=== PATIENT | male | born 1965 | race Caucasian/White ===

== ENCOUNTER 2018-10-13 17:16 | Emergency (ER) | payer BC ==
--- NOTE | 2018-10-13 17:41 | EDM.PDOC ---
ED HPI GENERAL MEDICAL PROBLEM - General Chief Complaint: Headache Stated Complaint: Fell at home and hit head on asphalt Time Seen by Provider: 10/13/18 17:37 Source of Information: Reports: Patient, Family, RN - History of Present Illness INITIAL COMMENTS - FREE TEXT/NARRATIVE: 52 yr male presents after having a fall at home. States he went outside to get the mail, didn't see the ice and legs went out from under him and hit head and back. He notes headache and back pain. States he never did have any LOC with this and was able to get inside house by self and did call his at that time. States this happened about 1 hour before presenting to ER. Headache is improving, some eye sensitive to light, no blurred vision and no nausea. He hasn't taken anything for pain, but has had ice to back and is feeling much improved. He is alert and talkative and his is with him. States some pain to chest too. - Related Data Allergies Allergy/AdvReac Type Severity Reaction Status Date / Time No Known Allergies Allergy Verified 10/13/18 18:32 Home Meds: Home Meds Simvastatin 20 mg PO DAILY 10/13/18 [History] ED ROS GENERAL - Review of Systems Review Of Systems: See Below Constitutional: Reports: Weakness HEENT: Reports: Glasses, Sinus Problem, Other (sensitive to lights). Denies: Eye Pain, Nose Pain, Vision Change Respiratory: Reports: Cough Cardiovascular: Reports: No Symptoms Endocrine: Reports: No Symptoms GI/Abdominal: Reports: No Symptoms Musculoskeletal: Reports: Other (some pain to breastbone) Skin: Reports: No Symptoms Neurological: Reports: Headache. Denies: Numbness, Paresthesia Psychiatric: Reports: No Symptoms - Physical Exam Exam: See Below Exam Limited By: No Limitations General Appearance: Alert, No Apparent Distress Ears: Normal External Exam, Hearing Grossly Normal Nose: Normal Inspection, Normal Mucosa Throat/Mouth: Normal Inspection, Normal Voice, No Airway Compromise Head Exam: Atraumatic, Normocephalic Neck: Normal Inspection, Supple, Non-Tender Respiratory/Chest: No Respiratory Distress, Lungs Clear, Normal Breath Sounds Cardiovascular: Regular Rate, Rhythm, No Edema Neuro Exam (Abbreviated): Alert, Oriented, Normal Cognition Back Exam: Normal Inspection. No: Paraspinal Tenderness, Vertebral Tenderness Extremities: Normal Range of Motion Psychiatric: Normal Affect, Normal Mood Skin Exam: Warm, Dry, Normal Color Course - Vital Signs Last Recorded V/S: Last Vital Signs Temp 97.8 F 10/13/18 18:46 Pulse 94 10/13/18 18:46 Resp 16 10/13/18 18:46 BP 152/98 H 10/13/18 18:46 Pulse Ox 100 10/13/18 18:46 - Orders/Labs/Meds Orders: Active Orders 24 hr Category Date Time Status Head wo Cont [CT] Stat Exams 10/13/18 17:40 Taken Meds: Medications Discontinued Medications Generic Name Dose Route Start Last Admin Trade Name Stacey PRN Reason Stop Dose Admin Acetaminophen Confirm 10/13/18 17:58 Tylenol Arthritis Pain Administered 10/13/18 17:59 Dose 650 mg .ROUTE .STK-MED ONE Departure - Departure Time of Disposition: 18:12 Disposition: Home, Self-Care 01 Condition: Good Clinical Impression: Head injury - Discharge Information Referrals: PCP,None [Primary Care Provider] - Forms: ED Department Discharge - My Orders Last 24 Hours: My Active Orders 10/13/18 17:40 Head wo Cont [CT] Stat - Assessment/Plan Last 24 Hours: My Active Orders 10/13/18 17:40 Head wo Cont [CT] Stat Plan: Will get a CT of head to rule out any hemorrhage or head injury from the fall. If CT is normal, will discharge to care of family and monitor for any increase in symptoms. Tylenol as needed for relief of pain and diet as tolerated. Recommend rest tonight, ice to back and head, and limit electronic use tonight until headache is resolved. CT results reviewed with pt and , no hemorrhage noted, no infarct. Sinusitis noted and pt reports increase in sinus congestion and cough persists despite Azithromycin recently. Will start Augmentin 875 mg PO bid X 10 days. May use Tyelnol for relief of pain and limit use of Aleve or Ibuprofen for 24 hour. RTC or ER if increase in symptoms or any change in LOC.
[2018-10-13] MEDS ORDERED: Amoxicillin/Clavulanate K 875-125 MG Tab ONE (17:55)
[2018-10-13] MEDS ORDERED: Acetaminophen 650 MG Tab.ER ONE ×2 (17:55→17:58)
--- NOTE | 2018-10-14 09:45 | CT ---
UNENHANCED BRAIN CT, 10/13/18 Multislice acquisition through the brain without IV contrast was performed. No masses or mass effect. No intracranial hemorrhage. No evidence of acute or subacute infarct. The patient is status post partial ethmoidectomy. There is mucosal thickening in the frontal, remaining ethmoid, and sphenoid sinuses consistent with chronic sinusitis. IMPRESSION: No acute intracranial abnormalities. Findings consistent with sinusitis. [id number] [facility]
== END 2018-10-13 18:15 | disposition home or self-care (01) ==
LOC: LB.ED 17:16
DX: S09.90XA Unspecified injury of head, initial encounter (principal); Z79.899 Other long term (current) drug therapy; W00.0XXA Fall on same level due to ice and snow, initial encounter; Y92.009 Unspecified place in unspecified non-institutional (private) residence as the place of occurrence of the external cause
CPT/HCPCS: 70450; 99284-25; A9270-GY

== ENCOUNTER 2018-10-19 11:20 | Emergency (ER) | payer BC ==
--- NOTE | 2018-10-19 11:52 | EDM.PDOC ---
ED HPI GENERAL MEDICAL PROBLEM - General Chief Complaint: General Stated Complaint: increased headache Time Seen by Provider: 10/19/18 11:30 Source of Information: Reports: Patient History Limitations: Reports: No Limitations - History of Present Illness INITIAL COMMENTS - FREE TEXT/NARRATIVE: Pt is a 52 taylor old male who had a fall 1 wk ago and hit the back of his head against the hard ground. There was no loss of consciousness, but he has had photophobia, difficulty concentrating, feels foggy at times, some nausea. But he claims over the past 2 days his headache has got worse. Hurts all over the head and behind his ears. pain is dull achy , rates 5/10. Has been using tyelnol and motrin as needed, headache improves but does not resolve. No blurry vision,no confusion, no weakness in the extremities,no tingling or numbness, no syncope.No seizures. Duration: Week(s): (1) Location: Reports: Head Quality: Reports: Ache Severity: Moderate Improves with: Reports: None Worsens with: Reports: None Associated Symptoms: Reports: Headaches, Nausea/Vomiting. Denies: Confusion, Chest Pain, Cough, Diaphoresis, Fever/Chills, Loss of Appetite, Rash, Seizure, Shortness of Breath, Syncope, Weakness Head Pain Score (Numeric/FACES): 7 - Related Data Allergies Allergy/AdvReac Type Severity Reaction Status Date / Time No Known Allergies Allergy Verified 10/19/18 11:38 Home Meds: Home Meds Simvastatin 20 mg PO DAILY 10/13/18 [History] Amoxicillin/Clavulanate K [Augmentin 875-125 MG] 1 tab PO BID 10/19/18 [History] ED ROS GENERAL - Review of Systems Review Of Systems: See Below Constitutional: Denies: Fever, Chills, Malaise, Weakness HEENT: Denies: Ear Pain, Nosebleed, Rhinitis, Throat Pain, Throat Swelling, Vertigo, Vision Change Respiratory: Denies: Shortness of Breath, Pleuritic Chest Pain, Cough, Sputum Cardiovascular: Denies: Chest Pain, Lightheadedness GI/Abdominal: Reports: Nausea. Denies: Abdominal Pain, Constipation, Distension , Vomiting Musculoskeletal: Denies: Joint Pain, Joint Swelling, Muscle Pain, Muscle Stiffness Skin: Denies: Bruising, Pruritis, Rash Neurological: Reports: Dizziness, Headache. Denies: Confusion, Numbness, Syncope, Tingling, Difficulty Walking, Weakness, Gait Disturbance Psychiatric: Denies: Agitation, Anxiety, Confusion, Cravings, Depression ED EXAM, GENERAL - Physical Exam Exam: See Below Exam Limited By: No Limitations General Appearance: Alert, WD/WN, No Apparent Distress Ears: Normal External Exam, Normal Canal, Hearing Grossly Normal, Normal TMs Ear Exam: Bilateral Ear: Auricle Normal, Canal Normal, TM normal Nose: Normal Inspection, Normal Mucosa, No Blood Throat/Mouth: Normal Inspection, Normal Lips, Normal Teeth, Normal Gums, Normal Oropharynx, Normal Voice, No Airway Compromise Head: Atraumatic, Normocephalic Neck: Normal Inspection, Supple, Non-Tender, Full Range of Motion Respiratory/Chest: No Respiratory Distress, Lungs Clear, Normal Breath Sounds, No Accessory Muscle Use, Chest Non-Tender Cardiovascular: Normal Peripheral Pulses, Regular Rate, Rhythm, No Edema, No Gallop, No JVD, No Murmur, No Rub GI/Abdominal: Normal Bowel Sounds, Soft, Non-Tender, No Organomegaly, No Distention, No Abnormal Bruit, No Mass Neurological: Alert, Oriented, CN II-XII Intact, Normal Cognition, Normal Gait, Normal Reflexes, No Motor/Sensory Deficits Psychiatric: Normal Affect, Normal Mood Skin Exam: Warm, Intact Course - Vital Signs Text/Narrative:: Pt is here 1 wk post injury, and he continue to have light sensitivity, nausea , foggy feeling, which are persistent since fall. But he has been having headache which has got worse over the past 2 days. His vitals are stable and his neuro exam is normal.Will repeat Ct head, to make sure he does not have any delayed intracranial bleed. Ct head done today rogel not show any acute changes. Pt reassured that he has concussion syndrome. He did receive toradol 30mg IM. Have stated him on toradol 10mg 3 times daily for headache. Also zofran 4mg TID prn for nausea. rest and hydration.avoid excessive stress.No work for next 1 wk. Also pt has been scheduled with OT for concussion followup. Last Recorded V/S: Last Vital Signs Temp 98.5 F 10/19/18 11:59 Pulse 92 10/19/18 11:59 Resp 20 10/19/18 11:59 BP 137/93 H 10/19/18 11:59 Pulse Ox 97 10/19/18 11:59 - Orders/Labs/Meds Meds: Medications Discontinued Medications Generic Name Dose Route Start Last Admin Trade Name Stacey PRN Reason Stop Dose Admin Ketorolac Tromethamine Confirm 10/19/18 12:49 10/19/18 20:33 Toradol Administered 10/19/18 12:50 Not Given Dose 30 mg .ROUTE .STK-MED ONE Ketorolac Tromethamine 30 mg 10/19/18 14:51 10/19/18 13:00 Toradol IM 10/19/18 14:52 30 mg ONETIME ONE Administration Departure - Departure Time of Disposition: 13:00 Disposition: Home, Self-Care 01 Condition: Fair Clinical Impression: Cerebral concussion - Discharge Information *PRESCRIPTION DRUG MONITORING PROGRAM REVIEWED*: Not Applicable *COPY OF PRESCRIPTION DRUG MONITORING REPORT IN PATIENT MAIK: Not Applicable Instructions: Ondansetron tablets, Ketorolac injection, Concussion, Adult, Ketorolac tablets Referrals: PCP,None [Primary Care Provider] - Forms: ED Department Discharge Care Plan Goals: Stay of work until cleared by occupational therapy, away from light and noise. Try to stay awake during day. Take Toradol 10 mg 3 x day for discomfort and zofran 4 mg 3 x day for nausea as needed.for nausea. Referral to occupational therapy velia and Nydia should call you for an appointment - Problem List & Annotations (1) Post concussion syndrome SNOMED Code(s): 54999032 Code(s): F07.81 - POSTCONCUSSIONAL SYNDROME Status: Acute - Problem List Review Problem List Initiated/Reviewed/Updated: Yes - Assessment/Plan Assessment:: post concussion syndrome Plan: Ct head done today rogel not show any acute changes. Pt reassured that he has concussion syndrome. He did receive toradol 30mg IM. Have stated him on toradol 10mg 3 times daily for headache. Also zofran 4mg TID prn for nausea. rest and hydration.avoid excessive stress.No work for next 1 wk. Also pt has been scheduled with OT for concussion followup.
[2018-10-19] MEDS ORDERED: Ketorolac 30 MG/ML SDV ONE (12:49)
[2018-10-19] MEDS ORDERED: Ketorolac 30 MG/ML SDV IM ONE (14:51)
--- NOTE | 2018-10-20 08:25 | CT ---
UNENHANCED BRAIN CT, 10/19/18 Multislice acquisition through the brain without IV contrast was performed. Comparison is made to a prior exam dated 10/13/18. No masses or mass effect. No intracranial hemorrhage. No evidence of acute or subacute infarct. There is fluid in the frontal and ethmoid sinuses. There is also mucosal thickening of the sphenoid sinuses. These findings are consistent with sinusitis. IMPRESSION: No acute intracranial abnormalities. Findings consistent with sinusitis. [id number] [facility]
== END 2018-10-19 13:00 | disposition home or self-care (01) ==
LOC: LB.ED 11:20
DX: S06.0X0A Concussion without loss of consciousness, initial encounter (principal); Z79.899 Other long term (current) drug therapy; W18.39XA Other fall on same level, initial encounter
CPT/HCPCS: 70450; 96372; 99284-25; J1885

== ENCOUNTER 2019-05-04 06:25 | Emergency (ER) | payer BC ==
[2019-05-04] MEDS ORDERED: Bacitracin Oint 1 GM U/D Packet TOP ONE (07:00)
--- NOTE | 2019-05-04 07:06 | EDM.PDOC ---
ED HPI GENERAL MEDICAL PROBLEM - General Chief Complaint: Skin Complaint Stated Complaint: FOOT CELLULITIS Time Seen by Provider: 05/04/19 06:45 Source of Information: Reports: Patient History Limitations: Reports: No Limitations - History of Present Illness INITIAL COMMENTS - FREE TEXT/NARRATIVE: According to patient, he noticed redness over the left leg this weekend( 2 days ago). He is not sure how this happened, has been hurting. No fever or chills. HE has been feeling nauseous, and shortness of breath on and off for some time. No lethargy. Onset Date: 05/02/19 Location: Reports: Lower Extremity, Left Quality: Reports: Ache Severity: Mild Improves with: Reports: None Worsens with: Reports: None Associated Symptoms: Denies: Confusion, Chest Pain, Cough, Diaphoresis, Fever/ Chills, Headaches, Nausea/Vomiting, Rash, Seizure, Shortness of Breath, Syncope , Weakness Left Foot Pain Score (Numeric/FACES): 2 - Related Data Allergies Allergy/AdvReac Type Severity Reaction Status Date / Time No Known Allergies Allergy Verified 05/04/19 06:55 Home Meds: Home Meds Simvastatin 20 mg PO DAILY 10/13/18 [History] Social & Family History - Tobacco Use Smoking Status *Q: Never Smoker Second Hand Smoke Exposure: No - Caffeine Use Caffeine Use: Reports: Coffee, Soda - Recreational Drug Use Recreational Drug Use: No ED ROS GENERAL - Review of Systems Review Of Systems: See Below Constitutional: Denies: Fever, Chills HEENT: Denies: Ear Pain, Rhinitis, Throat Pain Respiratory: Reports: Shortness of Breath. Denies: Wheezing, Pleuritic Chest Pain, Cough, Sputum Cardiovascular: Denies: Chest Pain, Orthopnea GI/Abdominal: Reports: Nausea. Denies: Abdominal Pain, Constipation, Diarrhea, Vomiting : Denies: Dysuria, Frequency Musculoskeletal: Denies: Joint Pain, Joint Swelling Skin: Reports: Erythema. Denies: Bruising, Pruritis, Rash, Wound ED EXAM, SKIN/RASH Exam: See Below Exam Limited By: No Limitations General Appearance: Alert, WD/WN, No Apparent Distress, Other (Pt is happy and smiling c/o shortness of breath. His resipratory rate is normal and SPO2 is 97%) Eye Exam: Bilateral Eye: EOMI, PERRL Ears: Normal External Exam, Normal Canal, Hearing Grossly Normal, Normal TMs Nose: Normal Inspection, Normal Mucosa, No Blood Throat/Mouth: Normal Inspection, Normal Lips, Normal Teeth, Normal Gums, Normal Oropharynx, Normal Voice, No Airway Compromise Head: Atraumatic, Normocephalic Neck: Normal Inspection, Supple, Non-Tender, Full Range of Motion Respiratory/Chest: No Respiratory Distress, Lungs Clear, Normal Breath Sounds, No Accessory Muscle Use, Chest Non-Tender Cardiovascular: Normal Peripheral Pulses, Regular Rate, Rhythm, No Edema, No Gallop, No JVD, No Murmur, No Rub GI/Abdominal: Normal Bowel Sounds, Soft, Non-Tender, No Organomegaly, No Distention, No Abnormal Bruit, No Mass Extremities: Normal Inspection, Normal Range of Motion, Non-Tender, No Pedal Edema, Normal Capillary Refill Neurological: Alert, Oriented Skin: Warm, Intact, Other (Left foot: There is bright red erythematous patch about the size of a dime over the dorsum of the forefoot. there is lgiht pinkish spreading erythema around it. tender to palpation.) Course - Vital Signs Text/Narrative:: Pt reassured that he has localized skin infection related to a bug or insect bite. He c/o he is short of breath and nauseous. His SPO2 is 97% on room air and his respiratory rte is between 14-16/min. His vitals are stable and his CBC is normal. I do not see any signs of systemic infection or sepsis. Pt reassured that he has bug bite over the left foot with localized skin infection. Advised to apply antibiotic ointment over the are and keep is clean. Motrin 800mg 3 time daily for pain. should resolve without complications. Followup in clinic if the redness spreads all over the left foot or leg, or develops fever with chills, nausea , vomiting, lethargy. Last Recorded V/S: Last Vital Signs Temp 97.3 F 05/04/19 06:59 Pulse 79 05/04/19 06:59 Resp 18 05/04/19 06:59 BP 148/96 H 05/04/19 06:59 Pulse Ox 97 05/04/19 06:59 - Orders/Labs/Meds Labs: Laboratory Tests 05/04/19 Range/Units 07:00 WBC 6.6 (4.0-11.0) K/uL RBC 5.45 (4.50-6.50) M/uL Hgb 15.5 (13.0-18.0) g/dL Hct 46.1 (40.0-54.0) % MCV 85 (76-96) fL MCH 28.4 (27.0-32.0) pg MCHC 33.6 (31.0-35.0) g/dL RDW 13.3 (11.0-16.0) % Plt Count 189 (150-400) K/uL MPV 9.8 (6.0-10.0) fL Neut % (Auto) 69.0 (45.0-70.0) % Lymph % (Auto) 15.9 L (20.0-40.0) % [place] % (Auto) 13.9 H (3.0-10.0) % Eos % (Auto) 0.6 L (1.0-5.0) % Baso % (Auto) 0.6 H (0.0-0.5) % Neut # (Auto) 4.53 (2.00-7.50) K/uL Lymph # (Auto) 1.04 L (1.50-4.00) K/uL [place] # (Auto) 0.91 H (0.20-0.80) K/uL Eos # (Auto) 0.04 (0.04-0.40) K/uL Baso # (Auto) 0.04 (0.02-0.10) K/uL Departure - Departure Time of Disposition: 07:30 Disposition: Home, Self-Care 01 Condition: Fair Clinical Impression: Localized infection of skin - Discharge Information *PRESCRIPTION DRUG MONITORING PROGRAM REVIEWED*: Not Applicable *COPY OF PRESCRIPTION DRUG MONITORING REPORT IN PATIENT MAIK: Not Applicable Referrals: PCP,None [Primary Care Provider] - Forms: ED Department Discharge Additional Instructions: Pt reassured that he has localized skin infection related to a bug or insect bite. He c/o he is short of breath and nauseous. His SPO2 is 97% on room air and his respiratory rte is between 14-16/min. His vitals are stable and his CBC is normal. I do not see any signs of systemic infection or sepsis. Pt reassured that he has bug bite over the left foot with localized skin infection. Advised to apply antibiotic ointment over the are and keep is clean. Motrin 800mg 3 time daily for pain. should resolve without complications. Followup in clinic if the redness spreads all over the left foot or leg, or develops fever with chills, nausea , vomiting, lethargy. - Problem List & Annotations (1) Localized infection of skin SNOMED Code(s): 497742219 Code(s): L08.9 - LOCAL INFECTION OF THE SKIN AND SUBCUTANEOUS TISSUE, UNSP Status: Acute Current Visit: Yes - Problem List Review Problem List Initiated/Reviewed/Updated: Yes - Assessment/Plan Assessment:: Localized skin infection left foot Plan: Pt reassured that he has localized skin infection related to a bug or insect bite. He c/o he is short of breath and nauseous. His SPO2 is 97% on room air and his respiratory rte is between 14-16/min. His vitals are stable and his CBC is normal. I do not see any signs of systemic infection or sepsis. Pt reassured that he has bug bite over the left foot with localized skin infection. Advised to apply antibiotic ointment over the are and keep is clean. Motrin 800mg 3 time daily for pain. should resolve without complications. Followup in clinic if the redness spreads all over the left foot or leg, or develops fever with chills, nausea , vomiting, lethargy.
== END 2019-05-04 07:45 | disposition home or self-care (01) ==
LOC: LB.ED 06:25
DX: L08.9 Local infection of the skin and subcutaneous tissue, unspecified (principal)
CPT/HCPCS: 36415; 85025; 99283

== ENCOUNTER 2019-05-05 21:54 | Emergency (ER) | payer BC ==
[2019-05-05] MEDS ORDERED: Amoxicillin/Clavulanate K 875-125 MG Tab ONE (22:00)
[2019-05-05] MEDS ORDERED: cefTRIAXone 1 GM Vial IM ONE (22:32)
[2019-05-05] MEDS ORDERED: Ketorolac 60 MG/2 ML SDV IM ONE (22:32)
--- NOTE | 2019-05-05 22:55 | ER ---
HISTORY OF PRESENT ILLNESS: A 53-year-old male here with complaints of a painful red rash on the top of the left foot. This all started on Saturday. They were in [place] staying at a hotel. It was a small red area. He had it checked yesterday here by another provider and was thought to be an insect bite of some sort. He was not treated with any antibiotics. The patient tells me that over the course of the last day or so, his symptoms have slowly gotten worse. The area of redness has gotten bigger since last night, it is still contained to the top part of his foot, but he states now he is running a little bit of a fever and does not feel well. There has not been any drainage or weeping from this area, and he has no idea if it was an insect bite or something else that caused his symptoms to develop. OBJECTIVE: GENERAL APPEARANCE: The patient is awake and alert. He states his pain is currently at 8 or 9/10. VITAL SIGNS: Reviewed. He is afebrile. Pulse is around 120. EXTREMITIES: Examining the patient's left foot reveals an erythematous macular rash on the dorsal aspect of the distal foot over the great toe and second toe. The area of involvement would be about 4 cm. The central area is slightly dusky. The skin is intact. There is no break in the skin that I can see. The area is warm to touch and tender to touch. There are pen banks that are almost at the perimeter. The patient tells me that this was done this morning. It has moved past the pen chintan about 0.5 cm in all directions. DIAGNOSIS: Cellulitis of the left forefoot. TREATMENT PLAN: Rocephin 1 g will be given IM. I also will start the patient on Augmentin 875 one tablet b.i.d. He is to take his first dose of that tonight as well. We will give him Toradol 60 mg IM to help with the pain. The patient is to take Tylenol or ibuprofen at home, alternating every 3 hours, taking Tylenol in approximately 3 hours unless he is sleeping well. He is to rest, keep his foot elevated, stay home tomorrow from work, and monitor symptoms closely. If he is not improving by tomorrow afternoon or if his condition should be getting worse by tomorrow, he is to come back in for a recheck, and he may need inpatient treatment at that time. The patient and his agree with the treatment plan and have no further questions. CRS/MODL /[id number]
== END 2019-05-05 22:17 | disposition home or self-care (01) ==
LOC: LB.ED 21:54
DX: L03.116 Cellulitis of left lower limb (principal)
CPT/HCPCS: 96372; 99283; A9270; J0696; J1885

== ENCOUNTER 2019-05-06 06:55 | Observation (INO) | payer BC ==
[2019-05-06] MEDS ORDERED: HYDROmorphone 2 MG/ML Syringe IVPUSH ONE (07:16)
[2019-05-06] MEDS ORDERED: Sodium Chloride 0.9% 1,000 ML IV ONE (07:18)
[2019-05-06] MEDS ORDERED: Ondansetron 4 MG/2 ML SDV IVPUSH ONE (07:21)
--- NOTE | 2019-05-06 07:54 | EDM.PDOC ---
ED HPI GENERAL MEDICAL PROBLEM - General Chief Complaint: General Stated Complaint: CELLULITIS Time Seen by Provider: 05/06/19 08:00 Source of Information: Reports: Patient, RN - History of Present Illness INITIAL COMMENTS - FREE TEXT/NARRATIVE: 53 yr male presents with pain and swelling to left dorsal foot. Kindly refer to other provider note for start of ER visit and history of this. Headache Pain Score (Numeric/FACES): 9 - Related Data Allergies Allergy/AdvReac Type Severity Reaction Status Date / Time No Known Allergies Allergy Verified 05/04/19 06:55 Home Meds: Home Meds Simvastatin 20 mg PO DAILY 10/13/18 [History] Social & Family History - Caffeine Use Caffeine Use: Reports: Coffee, Soda ED ROS GENERAL - Review of Systems Review Of Systems: See Below Constitutional: Reports: Fever, Chills, Decreased Appetite HEENT: Reports: No Symptoms Respiratory: Reports: No Symptoms Cardiovascular: Reports: No Symptoms GI/Abdominal: Reports: Decreased Appetite. Denies: Diarrhea : Denies: Dysuria Musculoskeletal: Reports: Other (generalized achiness) Skin: Reports: Erythema. Denies: Wound Neurological: Reports: Headache (since Saturday) Psychiatric: Reports: No Symptoms Hematologic/Lymphatic: Reports: No Symptoms ED EXAM, GENERAL - Physical Exam Exam: See Below Exam Limited By: No Limitations General Appearance: Alert, No Apparent Distress Ears: Hearing Grossly Normal Nose: Normal Inspection Throat/Mouth: Normal Voice, No Airway Compromise Head: Atraumatic, Normocephalic Neck: Normal Inspection, Supple, Non-Tender Respiratory/Chest: No Respiratory Distress Cardiovascular: Regular Rate, Rhythm Peripheral Pulses: 2+: Dorsalis Pedis (L), Dorsalis Pedis (R) GI/Abdominal: Soft, Non-Tender Back Exam: Other (limited ROM to left great toe) Neurological: Alert, Oriented, Normal Cognition Psychiatric: Normal Affect, Normal Mood Skin Exam: Warm, Dry, Normal Color, Other (erythema, mild swelling to dorsal side of left foot) Course - Vital Signs Last Recorded V/S: Last Vital Signs Temp 103.2 F H 05/06/19 08:08 Pulse 102 H 05/06/19 08:08 Resp 20 05/06/19 08:08 BP 156/94 H 05/06/19 08:08 Pulse Ox 97 05/06/19 08:08 - Orders/Labs/Meds Orders: Active Orders 24 hr Category Date Time Status Patient Status [ADT] Routine ADT 05/06/19 08:06 Active Acetaminophen [Tylenol] Med 05/06/19 08:05 Active 650 mg PO Q4H PRN Medication Orders Acetaminophen (Tylenol) 650 mg PO Q4H PRN PRN Reason: Temperature Last Admin: 05/06/19 08:06 Dose: 650 mg Amoxicillin/Clavulanate Potassium (Augmentin 875 Mg/125 Mg) 1 tab PO Q12HR SIDNEY Ceftriaxone Sodium 1 gm/ (Sodium Chloride) 50 mls @ 200 mls/hr IV ONETIME ONE Stop: 05/06/19 10:14 Sodium Chloride (Normal Saline) 1,000 mls @ 125 mls/hr IV ASDIRECTED SIDNEY Non-Formulary Medication (Simvastatin [Simvastatin]) 20 mg PO DAILY SIDNEY Ondansetron HCl (Zofran Odt) 4 mg PO Q8H PRN PRN Reason: Nausea/Vomiting Labs: Laboratory Tests 05/06/19 05/06/19 05/06/19 Range/Units 07:17 07:17 07:17 WBC 6.8 (4.0-11.0) K/uL RBC 5.53 (4.50-6.50) M/uL Hgb 15.8 (13.0-18.0) g/dL Hct 46.5 (40.0-54.0) % MCV 84 (76-96) fL MCH 28.6 (27.0-32.0) pg MCHC 34.0 (31.0-35.0) g/dL RDW 13.5 (11.0-16.0) % Plt Count 177 (150-400) K/uL MPV 9.7 (6.0-10.0) fL Neut % (Auto) 79.6 H (45.0-70.0) % Lymph % (Auto) 8.3 L (20.0-40.0) % Sully % (Auto) 11.7 H (3.0-10.0) % Eos % (Auto) 0.1 L (1.0-5.0) % Baso % (Auto) 0.3 (0.0-0.5) % Neut # (Auto) 5.44 (2.00-7.50) K/uL Lymph # (Auto) 0.57 L (1.50-4.00) K/uL Sully # (Auto) 0.80 (0.20-0.80) K/uL Eos # (Auto) 0.01 L (0.04-0.40) K/uL Baso # (Auto) 0.02 (0.02-0.10) K/uL Sodium 140 (136-145) mmol/L Potassium 4.1 (3.5-5.1) mmol/L Chloride 104 (98-107) mmol/L Carbon Dioxide 22.6 (21.0-32.0) mmol/L Anion Gap 17.5 H (5.0-15.0) mmol/L BUN 16 (8-26) mg/dL Creatinine 0.91 (0.70-1.30) mg/dL Est Cr Clr Drug Dosing 106.64 mL/min Estimated GFR (MDRD) > 60 (>60) MLS/MIN BUN/Creatinine Ratio 17.6 (6-25) Glucose 115 H (74-100) mg/dL Lactic Acid 1.34 (0.90-1.70) mmol/L Calcium 8.9 (8.5-10.1) mg/dL Total Bilirubin 0.4 (0.0-1.0) mg/dL AST 26 (15-37) U/L ALT 41 (12-78) U/L Alkaline Phosphatase 96 (46-116) U/L Total Protein 7.5 (6.4-8.2) g/dL Albumin 3.4 (3.4-5.0) g/dL Globulin 4.1 (2.2-4.2) g/dL Albumin/Globulin Ratio 0.8 (0.8-2.0) Meds: Medications Generic Name Dose Route Start Last Admin Trade Name Freq PRN Reason Stop Dose Admin Acetaminophen 650 mg 05/06/19 08:05 05/06/19 08:06 Tylenol PO 650 mg Q4H PRN Administration Temperature Amoxicillin/Clavulanate Potassium 1 tab 05/06/19 10:00 Augmentin 875 Mg/125 Mg PO Q12HR SIDNEY Ceftriaxone Sodium 1 gm/ 50 mls @ 200 mls/hr 05/06/19 10:00 Sodium Chloride IV 05/06/19 10:14 ONETIME ONE Sodium Chloride 1,000 mls @ 125 mls/hr 05/06/19 08:30 Normal Saline IV ASDIRECTED SIDNEY Non-Formulary Medication 20 mg 05/06/19 20:00 Simvastatin [Simvastatin] PO DAILY SIDNEY Ondansetron HCl 4 mg 05/06/19 08:09 Zofran Odt PO Q8H PRN Nausea/Vomiting Discontinued Medications Generic Name Dose Route Start Last Admin Trade Name Stacey PRN Reason Stop Dose Admin Acetaminophen Confirm 05/06/19 08:12 05/06/19 08:07 Tylenol Administered 05/06/19 08:13 Not Given Dose 650 mg .ROUTE .STK-MED ONE Hydromorphone HCl 1 mg 05/06/19 07:16 05/06/19 07:17 Dilaudid IVPUSH 05/06/19 07:17 1 mg ONETIME ONE Administration Sodium Chloride 1,000 mls @ 999 mls/hr 05/06/19 07:18 05/06/19 07:28 Normal Saline IV 05/06/19 08:18 999 mls/hr .BOLUS ONE Administration Ondansetron HCl 4 mg 05/06/19 07:21 05/06/19 07:22 Zofran IVPUSH 05/06/19 07:22 4 mg ONETIME ONE Administration - Re-Assessments/Exams Free Text/Narrative Re-Assessment/Exam: 05/06/19 08:20 No leukocytosis, generalized body aches, rating pain to foot 6/ 10 after dilaudid, headache, but states this persists on/off since concussion in October, some nausea, decrease in appetite. Last temp>103. Tylenol 650 mg PO given. Will admit to observation, lactic acid is 1.34. Departure - Departure Time of Disposition: 08:29 Disposition: Refer to Observation Condition: Good Clinical Impression: Cellulitis - Discharge Information *PRESCRIPTION DRUG MONITORING PROGRAM REVIEWED*: Not Applicable *COPY OF PRESCRIPTION DRUG MONITORING REPORT IN PATIENT MAIK: Not Applicable - My Orders Last 24 Hours: My Active Orders 05/06/19 08:05 Acetaminophen [Tylenol] 650 mg PO Q4H PRN 05/06/19 08:06 Patient Status [ADT] Routine - Assessment/Plan Last 24 Hours: My Active Orders 05/06/19 08:05 Acetaminophen [Tylenol] 650 mg PO Q4H PRN 05/06/19 08:06 Patient Status [ADT] Routine
[2019-05-06] MEDS: Acetaminophen 325 MG Tab PO PRN (08:06)
[2019-05-06] MEDS ORDERED: Ondansetron 4 MG Tab.DIS PO PRN (08:09)
[2019-05-06] MEDS ORDERED: Acetaminophen 325 MG Tab ONE (08:12)
[2019-05-06] MEDS: Sodium Chloride 0.9% 1,000 ML IV SCH ×2 (08:45→16:45)
[2019-05-06] MEDS ORDERED: Ibuprofen 400 MG Tab PO ONE (09:25)
[2019-05-06] MEDS ORDERED: cefTRIAXone 1 GM in Sodium Chloride 0.9% 50 ML IV ONE (10:00)
[2019-05-06] MEDS: Lactobacillus Acidophilus/Lactobacillus Sporogenes (Probiotic) Tab PO SCH (10:15)
[2019-05-06] MEDS: Amoxicillin/Clavulanate K 875-125 MG Tab PO SCH ×2 (10:29→19:46)
[2019-05-06] MEDS: Ibuprofen 400 MG Tab PO PRN (18:02)
[2019-05-06] MEDS ORDERED: Non-Formulary Medication 1 Each (Simvastatin [Simvastatin] 20 MG) PO SCH (20:00)
[2019-05-07] MEDS: Ibuprofen 400 MG Tab PO PRN (02:06)
[2019-05-07] MEDS: Acetaminophen 325 MG Tab PO PRN (05:40)
[2019-05-07] MEDS: Lactobacillus Acidophilus/Lactobacillus Sporogenes (Probiotic) Tab PO SCH (07:54)
[2019-05-07] MEDS: Amoxicillin/Clavulanate K 875-125 MG Tab PO SCH (07:54)
--- NOTE | 2019-05-07 09:00 | PCM.DCSUM1 ---
Discharge Summary - Hospital Course Diagnosis: Stroke: No - Discharge Data Discharge Date: 05/07/19 Discharge Disposition: Home, Self-Care 01 Condition: Good - Patient Instructions Diet: Regular Diet as Tolerated Activity: As Tolerated Driving: May Drive Today Showering/Bathing: May Shower Notify Provider of: Fever, Increased Pain, Swelling and Redness Other/Special Instructions: RTC next week for follow-up - Discharge Plan *PRESCRIPTION DRUG MONITORING PROGRAM REVIEWED*: Not Applicable *COPY OF PRESCRIPTION DRUG MONITORING REPORT IN PATIENT MAIK: Not Applicable Home Medications: Home Meds Simvastatin 20 mg PO DAILY 10/13/18 [History] Acetaminophen [Tylenol] 650 mg PO Q4H PRN tablet 05/07/19 [Rx] Acidophilus/Lactobac Spor [Acidolphilus X-Strength] 1 tab PO DAILY tablet 05/07 [Rx] Amoxicillin/Clavulanate K [Augmentin 875-125 MG] 1 tab PO Q12HR tablet [Rx] Forms: ED Department Discharge Referrals: PCP,None [Primary Care Provider] - - Discharge Summary/Plan Comment DC Time >30 min.: Yes (Counseled on medications, cellulitis, H/A, and depression.) Discharge Summary/Plan Comment: Continue with Augmentin bid, complete the prescription, continue with daily probiotic for duration of antibiotic and 1 week after completed, Continue with elevating foot several times daily, up as tolerated at home, continue with Tylenol or Ibuprofen for relief of headache and pain to foot. May return to work, Saturday. Follow-up in clinic next week. - General Info Date of Service: 05/07/19 Admission Dx/Problem (Free Text: cellulitis, headache, temperature, pain to foot Functional Status: Reports: Pain Controlled, Tolerating Diet - Review of Systems General: Reports: No Symptoms HEENT: Reports: Glasses Pulmonary: Reports: No Symptoms Cardiovascular: Reports: No Symptoms Gastrointestinal: Reports: No Symptoms Genitourinary: Reports: No Symptoms Musculoskeletal: Reports: Foot Pain (Foot pain improved) Skin: Reports: Other (redness to foot) Neurological: Reports: Headache. Denies: Trouble Speaking, Difficulty Walking Psychiatric: Reports: Other (concerns of depression) - Patient Data Vitals - Most Recent: Last Vital Signs Temp 97.1 F 05/07/19 04:00 Pulse 79 05/07/19 04:00 Resp 18 05/07/19 04:00 BP 149/94 H 05/07/19 04:00 Pulse Ox 98 05/07/19 04:00 Weight - Most Recent: 259 lb 12.8 oz Lab Results - Last 24 hrs: Laboratory Results - last 24 hr 05/07/19 Range/Units 07:05 WBC 4.8 D (4.0-11.0) K/uL RBC 5.12 (4.50-6.50) M/uL Hgb 14.6 (13.0-18.0) g/dL Hct 43.5 (40.0-54.0) % MCV 85 (76-96) fL MCH 28.5 (27.0-32.0) pg MCHC 33.6 (31.0-35.0) g/dL RDW 13.6 (11.0-16.0) % Plt Count 188 (150-400) K/uL MPV 9.7 (6.0-10.0) fL Neut % (Auto) 64.4 (45.0-70.0) % Lymph % (Auto) 16.9 L (20.0-40.0) % Cottle % (Auto) 17.1 H (3.0-10.0) % Eos % (Auto) 1.2 (1.0-5.0) % Baso % (Auto) 0.4 (0.0-0.5) % Neut # (Auto) 3.11 (2.00-7.50) K/uL Lymph # (Auto) 0.82 L (1.50-4.00) K/uL Cottle # (Auto) 0.83 H (0.20-0.80) K/uL Eos # (Auto) 0.06 (0.04-0.40) K/uL Baso # (Auto) 0.02 (0.02-0.10) K/uL Med Orders - Current: Current Medications Acetaminophen (Tylenol) 650 mg PO Q4H PRN PRN Reason: Temperature Last Admin: 05/07/19 05:40 Dose: 650 mg Amoxicillin/Clavulanate Potassium (Augmentin 875 Mg/125 Mg) 1 tab PO Q12HR SIDNEY Last Admin: 05/07/19 07:54 Dose: 1 tab Sodium Chloride (Normal Saline) 1,000 mls @ 125 mls/hr IV ASDIRECTED [facility] Last Admin: 05/06/19 16:45 Dose: 125 mls/hr Ceftriaxone Sodium 1 gm/ (Sodium Chloride) 50 mls @ 200 mls/hr IV Q24H SIDNEY Ibuprofen (Motrin) 400 mg PO Q6H PRN PRN Reason: Pain Last Admin: 05/07/19 02:06 Dose: 400 mg Lactobacillus Acidophilus (Acidolphilus Extra Strength) 1 tab PO DAILY [facility] [place] Last Admin: 05/07/19 07:54 Dose: 1 tab Non-Formulary Medication (Simvastatin [Simvastatin]) 20 mg PO BEDTIME [facility] [place] Last Admin: 05/06/19 19:46 Dose: 20 mg Ondansetron HCl (Zofran Odt) 4 mg PO Q8H PRN PRN Reason: Nausea/Vomiting Discontinued Medications Acetaminophen (Tylenol) Confirm Administered Dose 650 mg .ROUTE .STK-MED ONE Stop: 05/06/19 08:13 Last Admin: 05/06/19 08:07 Dose: Not Given Hydromorphone HCl (Dilaudid) 1 mg IVPUSH ONETIME ONE Stop: 05/06/19 07:17 Last Admin: 05/06/19 07:17 Dose: 1 mg Sodium Chloride (Normal Saline) 1,000 mls @ 999 mls/hr IV .BOLUS ONE Stop: 05/06/19 08:18 Last Admin: 05/06/19 07:28 Dose: 999 mls/hr Ceftriaxone Sodium 1 gm/ (Sodium Chloride) 50 mls @ 200 mls/hr IV ONETIME ONE Stop: 05/06/19 10:14 Last Admin: 05/06/19 10:14 Dose: 200 mls/hr Ibuprofen (Motrin) 400 mg PO ONETIME ONE Stop: 05/06/19 09:26 Last Admin: 05/06/19 10:15 Dose: 400 mg Ondansetron HCl (Zofran) 4 mg IVPUSH ONETIME ONE Stop: 05/06/19 07:22 Last Admin: 05/06/19 07:22 Dose: 4 mg - Exam General: Reports: Alert, Oriented, Cooperative, No Acute Distress HEENT: Reports: Mucous Membr. Moist/[place] Neck: Reports: Supple, Trachea Midline Lungs: Reports: Clear to Auscultation, Normal Respiratory Effort Cardiovascular: Reports: Regular Rate, Regular Rhythm Extremities: Other (Pain is improved to foot, good ROM, hyperpigmented area noted to top of left foot, swelling improved.) Skin: Reports: Warm, Dry Neurological: Reports: No New Focal Deficit Psy/Mental Status: Reports: Alert, Normal Affect, Normal Mood
[2019-05-07] MEDS ORDERED: cefTRIAXone 1 GM in Sodium Chloride 0.9% 50 ML IV SCH (10:00)
== END 2019-05-07 09:50 | disposition home or self-care (01) ==
LOC: LB.ED 06:55 → LB.MS 08:06 → UNDOADMOB 08:07
PROVIDERS: ADMIT Nurse Practitioner Family; ATTEND Nurse Practitioner Family
DX: L03.116 Cellulitis of left lower limb (principal); Z79.899 Other long term (current) drug therapy
CPT/HCPCS: 36415; 80053; 83605; 85025; 87040; 96361; 96365; 96375; 96376; 99284; A9270; G0378; J0696; J1170; J2405; J7030; J7050; 96374

== ENCOUNTER 2019-05-11 11:26 | Emergency (ER) | payer BC ==
[2019-05-11] MEDS ORDERED: Acetaminophen/oxyCODONE 325-5 MG Tab ONE (12:00)
[2019-05-11] MEDS ORDERED: Sodium Chloride 0.9% 10 ML Syringe FLUSH PRN (12:07)
[2019-05-11] MEDS ORDERED: HYDROmorphone 2 MG/ML SDV IVPUSH ONE (12:08)
[2019-05-11] MEDS ORDERED: methylPREDNISolone Sodium Succinate 125 MG/2 ML SDV IVPUSH ONE (12:08)
[2019-05-11] MEDS ORDERED: Ketorolac 30 MG/ML SDV IVPUSH ONE (12:08)
[2019-05-11] MEDS ORDERED: Sodium Chloride 0.9% 500 ML IV SCH (12:15)
[2019-05-11] MEDS ORDERED: Ketorolac 30 MG/ML SDV ONE (12:22)
[2019-05-11] MEDS ORDERED: methylPREDNISolone Sodium Succinate 125 MG/2 ML SDV ONE (12:22)
[2019-05-11] MEDS ORDERED: HYDROmorphone 2 MG/ML SDV ONE (13:04)
--- NOTE | 2019-05-11 13:34 | EDM.PDOC ---
ED HPI GENERAL MEDICAL PROBLEM - General Chief Complaint: General Stated Complaint: headache Time Seen by Provider: 05/11/19 12:00 Source of Information: Reports: Patient, Family History Limitations: Reports: No Limitations - History of Present Illness INITIAL COMMENTS - FREE TEXT/NARRATIVE: This is a 53yo M here for a severe headache. He states it is about a 5-8/10 but there are sharp pains that raise that pain to 10/10 and has been very frequent today. He was diagnosed with a concussive syndrome in October but recently hit his head last week and having the same symptoms of severe headache. Onset: Sudden Duration: Day(s):, Constant, Getting Worse Location: Reports: Head Quality: Reports: Ache, Stabbing Severity: Severe Improves with: Reports: None Worsens with: Reports: Other (triggers like TV, driving), Movement Headache Pain Score (Numeric/FACES): 10 - Related Data Allergies Allergy/AdvReac Type Severity Reaction Status Date / Time No Known Allergies Allergy Verified 05/11/19 11:55 Home Meds: Home Meds Simvastatin 20 mg PO DAILY 10/13/18 [History] Acetaminophen [Tylenol] 650 mg PO Q4H PRN tablet 05/07/19 [Rx] Acidophilus/Lactobac Spor [Acidolphilus X-Strength] 1 tab PO DAILY tablet 05/07 [Rx] Amoxicillin/Clavulanate K [Augmentin 875-125 MG] 1 tab PO Q12HR tablet [Rx] Past Medical History Respiratory History: Reports: Sleep Apnea Genitourinary History: Reports: Renal Calculus Neurological History: Reports: Concussion Other Neuro History: concussion-october 2018 - Past Surgical History HEENT Surgical History: Reports: Adenoidectomy GI Surgical History: Reports: Appendectomy Male Surgical History: Reports: Kidney Stone Extraction Musculoskeletal Surgical History: Reports: Other (See Below) Other Musculoskeletal Surgeries/Procedures:: knee surgery Social & Family History - Family History Family Medical History: Noncontributory - Tobacco Use Smoking Status *Q: Never Smoker Second Hand Smoke Exposure: No - Caffeine Use Caffeine Use: Reports: None Other Caffeine Use: every morning - Recreational Drug Use Recreational Drug Use: No ED ROS GENERAL - Review of Systems Review Of Systems: ROS reveals no pertinent complaints other than HPI. ED EXAM, GENERAL - Physical Exam Exam: See Below Exam Limited By: No Limitations General Appearance: Alert, WD/WN, Moderate Distress Eye Exam: Bilateral Eye: EOMI, PERRL Ears: Normal External Exam Nose: Normal Inspection Head: Atraumatic, Normocephalic Neck: Normal Inspection Respiratory/Chest: No Respiratory Distress Cardiovascular: Normal Peripheral Pulses Course - Vital Signs Last Recorded V/S: Last Vital Signs Temp 36.4 C 05/11/19 11:56 Pulse 101 H 05/11/19 11:56 Resp 24 H 05/11/19 11:56 BP 125/77 05/11/19 11:56 Pulse Ox 98 05/11/19 11:56 - Orders/Labs/Meds Orders: Active Orders 24 hr Category Date Time Status Peripheral IV Insertion Adult [OM.PC] Routine Oth 05/11/19 12:07 Ordered Meds: Medications Discontinued Medications Generic Name Dose Route Start Last Admin Trade Name Freq PRN Reason Stop Dose Admin Hydromorphone HCl 1 mg 05/11/19 12:08 05/11/19 13:00 Dilaudid IVPUSH 05/11/19 12:09 1 mg ONETIME ONE Administration Hydromorphone HCl Confirm 05/11/19 13:04 05/11/19 13:05 Dilaudid Administered 05/11/19 13:05 Not Given Dose 2 mg .ROUTE .STK-MED ONE Sodium Chloride 500 mls @ 999 mls/hr 05/11/19 12:15 05/11/19 12:10 Normal Saline IV 999 mls/hr ASDIRECTED SIDNEY Administration Ketorolac Tromethamine 30 mg 05/11/19 12:08 05/11/19 12:18 Toradol IVPUSH 05/11/19 12:09 30 mg ONETIME ONE Administration Ketorolac Tromethamine Confirm 05/11/19 12:22 05/11/19 12:42 Toradol Administered 05/11/19 12:23 Not Given Dose 30 mg .ROUTE .STK-MED ONE Methylprednisolone Sodium Succinate 125 mg 05/11/19 12:08 05/11/19 12:24 Solu-Medrol IVPUSH 05/11/19 12:09 125 mg ONETIME ONE Administration Methylprednisolone Sodium Succinate Confirm 05/11/19 12:22 05/11/19 12:42 Solu-Medrol Administered 05/11/19 12:23 Not Given Dose 125 mg .ROUTE .STK-MED ONE Oxycodone/Acetaminophen 10 tab 05/11/19 12:00 Percocet 325-5 Mg .ROUTE 05/11/19 12:01 .STK-MED ONE Sodium Chloride 10 ml 05/11/19 12:07 05/11/19 12:05 Saline Flush FLUSH 10 ml ASDIRECTED PRN Administration Keep Vein Open Departure - Departure Time of Disposition: 13:30 Disposition: Home, Self-Care 01 Condition: Fair Clinical Impression: Post concussive syndrome Migraine Qualifiers: Migraine type: unspecified Status migrainosus presence: without status migrainosus Intractability: intractable Qualified Code(s): G43.919 - Migraine, unspecified, intractable, without status migrainosus - Discharge Information Instructions: General Headache Without Cause, [id number] Referrals: PCP,None [Primary Care Provider] - Forms: ED Department Discharge Additional Instructions: Discharge home Oxycodone/APAP 5/325 1 tablet every 4-6 hours as needed for pain. Follow up with neurology. Call or return to the ER if you have any questions or concerns. - Problem List & Annotations (1) Cerebral concussion SNOMED Code(s): 137592448 Code(s): S06.0X9A - CONCUSSION W LOSS OF CONSCIOUSNESS OF UNSP DURATION, INIT Status: Acute (2) Head injury SNOMED Code(s): 18654274 Code(s): S09.90XA - UNSPECIFIED INJURY OF HEAD, INITIAL ENCOUNTER Status: Acute (3) Migraine SNOMED Code(s): 13188028 Code(s): G43.909 - MIGRAINE, UNSP, NOT INTRACTABLE, WITHOUT STATUS MIGRAINOSUS Status: Acute Qualifiers: Migraine type: unspecified Status migrainosus presence: without status migrainosus Intractability: intractable Qualified Code(s): G43.919 - Migraine, unspecified, intractable, without status migrainosus (4) Post concussion syndrome SNOMED Code(s): 40049258 Code(s): F07.81 - POSTCONCUSSIONAL SYNDROME Status: Acute - Problem List Review Problem List Initiated/Reviewed/Updated: Yes - My Orders Last 24 Hours: My Active Orders 05/11/19 12:07 Peripheral IV Insertion Adult [OM.PC] Routine - Assessment/Plan Last 24 Hours: My Active Orders 05/11/19 12:07 Peripheral IV Insertion Adult [OM.PC] Routine Plan: Counseled on supportive and conservative management. Discussed oxycodone use only as needed and f/u in clinic and ER as needed. Patient to f/u with Neurology - note written for work until Neurology can clear patient.
== END 2019-05-11 13:20 | disposition home or self-care (01) ==
LOC: LB.ED 11:26
DX: G43.919 Migraine, unspecified, intractable, without status migrainosus (principal); F07.81 Postconcussional syndrome; Z79.899 Other long term (current) drug therapy; Z87.442 Personal history of urinary calculi
CPT/HCPCS: 96361; 96374; 96375; 99283; A9270; J1170; J1885; J2930; J7030

== ENCOUNTER 2020-07-03 02:21 | Emergency (ER) | payer BC ==
[2020-07-03] MEDS ORDERED: Ketorolac 30 MG/ML SDV IVPUSH ONE (02:35)
[2020-07-03] MEDS ORDERED: Sodium Chloride 0.9% 1,000 ML IV ONE (02:45)
[2020-07-03] MEDS ORDERED: Tamsulosin 0.4 MG Cap.ER PO ONE (03:18)
[2020-07-03] MEDS ORDERED: Ondansetron 4 MG/2 ML SDV IVPUSH ONE (03:23)
[2020-07-03] MEDS ORDERED: Ondansetron 4 MG Tab.DIS ONE (04:00)
[2020-07-03] MEDS ORDERED: traMADol 50 MG Tab ONE (04:00)
[2020-07-03] MEDS ORDERED: Tamsulosin 0.4 MG Cap.ER ONE (04:00)
[2020-07-03] MEDS ORDERED: Ondansetron 4 MG/2 ML SDV ONE (04:02)
[2020-07-03] MEDS ORDERED: HYDROmorphone 2 MG/ML SDV IM ONE (04:25)
[2020-07-03] MEDS ORDERED: HYDROmorphone 2 MG/ML SDV ONE (04:34)
--- NOTE | 2020-07-03 09:35 | ER ---
REASON FOR EMERGENCY ROOM VISIT: Kidney stone. HISTORY: This is 54-year-old man with a past history of left left-sided ureterolithiasis, comes in with left sided flank pain. He states that about 4 days ago, he developed rather acute onset of left-sided flank pain that lasted approximately 2 to 3 hours. It originated in his mid back area and radiated down to his flank. This was associated with nausea and vomiting x1, but it passed spontaneously after 2 or 3 hours. He suspected it might be a kidney stone as he does have a history of ureterolithiasis dating back 6 or 8 years ago requiring lithotripsy and stenting for removal. Last evening at approximately 8:30, he developed severe pain that lasted approximately 1 hour in the same area and resolved. He went to sleep and then was awakened at 10:30 again with intermittent colicky pain in his left mid back and left flank area. It was associated with nausea and vomiting x1. He has not had any fever, chills, or grossly bloody urine. PAST MEDICAL HISTORY: 1. Ureterolithiasis (see above). 2. Right knee replacement. 3. Nasal polypectomy. 4. Knee arthroscopy x2. 5. Traumatic brain injury with subsequent postconcussion syndrome in October 2018. 6. Hypertension. 7. History of migraines. MEDICATIONS: Reviewed. Please see EMR. They include hydrochlorothiazide, simvastatin, omeprazole, and Toradol p.r.n. SOCIAL HISTORY: He is with children. He has not been working since his traumatic brain injury, which has caused him considerable disability. FAMILY HISTORY: His father of a myocardial infarction at age 70. His mother at age 88 from complications secondary to dementia. He has 2 children who are alive and well. He has 5 siblings, 2 of whom have type 2 diabetes. REVIEW OF SYSTEMS: Pertinent positives and negatives as listed in the HPI. He had received 1 L of normal saline when he came to the emergency room and 30 mg of Toradol and his pain promptly and completely resolved. PHYSICAL EXAMINATION: GENERAL: He is alert, in no acute distress at this time. He is afebrile. HEENT: No scleral icterus is noted. NECK: Supple. No adenopathy. CHEST: Clear to auscultation. CARDIAC: Regular rate without murmur. ABDOMEN: Actually soft and nontender. He has no left flank tenderness. There is no CVA tenderness. EXTREMITIES: Normal pulses. No edema. LABORATORY DATA: His CBC shows that he has an elevated white count of 14,900. His hemoglobin is 16.8. His CMP shows that he does have hypokalemia of 3.1. His creatinine is 1.4 with an estimated GFR of 52. His blood glucose is 174, this is nonfasting. Urinalysis was obtained which demonstrates some proteinuria and 50 to 75 rbc's per high-power field with 0 to 5 wbc's and no bacteria. FURTHER EMERGENCY ROOM COURSE: Following his IV of normal saline and Toradol, we went ahead and obtained a CT scan which demonstrates a 6 mm stone located in his upper left ureter with minimal hydronephrosis proximally. He does have a small stone in the left kidney as well. Just prior to discharge, he did start to have flare-up of his pain again and we went ahead and gave him 2 mg of Dilaudid IM. IMPRESSION: Left ureterolithiasis, 6 mm in size. PLAN: I told him that although this is borderline in terms of likelihood of this being passing. He still has roughly a fifty-fifty chance of this passing spontaneously, but it may take several days or even weeks. He was given Flomax 0.4 mg p.o. x1 and a prescription for Flomax for the next 10 days, 1 p.o. daily. The importance of hydration was emphasized to him. He is also informed that he has some hypokalemia and I talked about dietary foods that can help correct this, otherwise he will have to go on oral potassium replacement. He understands and agrees with this. All questions were answered. I emphasized the importance of him following up with Dr. Smith next week. JIMI/ONESIMO /[id number]
--- NOTE | 2020-07-03 10:41 | CT ---
Date of Service: 07/03/20 Clinical Data: left flank pain UNENHANCED ABDOMEN AND PELVIC CT: Multislice acquisition through the abdomen and pelvis without IV or oral contrast was performed. Comparison is made to a prior abdomen and pelvic CT dated 01/16/08. There are atelectatic changes in the dependent portion of both lower lungs and in both lung bases. The lung bases are otherwise clear. The heart size is normal. The unenhanced liver appears normal. No focal hepatic lesions. The gallbladder appears normal. No calcified gallstones. No pericholecystic fluid. The spleen appears normal. The pancreas appears normal. The right and left adrenal appear normal. There is a 6 mm proximal left ureteral calculi located in the proximal left ureter at the L3 level. There is hydronephrosis and hydroureter proximal to it consistent with obstruction. There are nonobstructing renal calculi bilaterally. The right and left kidneys otherwise appear unremarkable. There is a small amount of fluid within the bladder. There is diffuse bladder wall thickening. This is probably related to nondistention. Cystitis should be considered. The prostate is enlarged. There are calcifications within the prostate consistent with chronic prostatitis. No evidence of appendicitis. There is a large amount of stool noted within the cecum and ascending colon. There is moderate amount of stool noted within the transverse colon. No free air. No free fluid. No dilated loops of bowel. No adenopathy. No aortic aneurysm. There is a small fat-containing umbilical hernia. There are bilateral fat- containing inguinal hernias. No other significant findings. IMPRESSION: 6 mm proximal left ureteral calculus with obstruction. Other findings as discussed above. [id number] [facility]
== END 2020-07-03 04:45 | disposition home or self-care (01) ==
LOC: LB.ED 02:21
DX: N13.2 Hydronephrosis with renal and ureteral calculous obstruction (principal); I10 Essential (primary) hypertension; D72.829 Elevated white blood cell count, unspecified
CPT/HCPCS: 36415; 74176; 80053; 81001; 85025; 96372; 96374; 96375; 99284; A9270; J1170; J1885; J2405; J7030